=== PATIENT | female | born 1980 | race Caucasian/White ===

== ENCOUNTER 2020-07-19 18:16 | Outpatient (CLI) | payer BC, OTHER | END 2020-07-19 20:35 | disposition home or self-care (01) | LOC: GENOP 18:16 | DX: O36.8130 Decreased fetal movements, third trimester, not applicable or unspecified (principal); O99.353 Diseases of the nervous system complicating pregnancy, third trimester; G40.209 Localization-related (focal) (partial) symptomatic epilepsy and epileptic syndromes with complex partial seizures, not intractable, without status epilepticus; G51.0 Bell's palsy; O99.323 Drug use complicating pregnancy, third trimester; F11.20 Opioid dependence, uncomplicated; O99.333 Smoking (tobacco) complicating pregnancy, third trimester; F17.200 Nicotine dependence, unspecified, uncomplicated; Z79.899 Other long term (current) drug therapy; Z3A.36 36 weeks gestation of pregnancy | CPT/HCPCS: 81001; G0463 ==

== ENCOUNTER 2020-07-29 19:30 | Outpatient (CLI) | payer BC, OTHER ==
[2020-07-29 20:48] LABS: HEMOGLOBIN 12.5 gm/dl (12.3-15.3); RED BLOOD COUNT 3.96 M/UL (4.00-5.10); WHITE BLOOD COUNT 13.3 K/UL (4.5-11.0)
[2020-07-29 21:28] LABS: BUN/CREATININE RATIO 13 (0-10)
== END 2020-07-29 22:28 | disposition home or self-care (01) ==
LOC: GENOP 19:30
PROVIDERS: Obstetrics & Gynecology
DX: O16.3 Unspecified maternal hypertension, third trimester (principal); O99.353 Diseases of the nervous system complicating pregnancy, third trimester; G40.209 Localization-related (focal) (partial) symptomatic epilepsy and epileptic syndromes with complex partial seizures, not intractable, without status epilepticus; G51.0 Bell's palsy; O99.323 Drug use complicating pregnancy, third trimester; F11.10 Opioid abuse, uncomplicated; Z79.899 Other long term (current) drug therapy; Z3A.37 37 weeks gestation of pregnancy
CPT/HCPCS: 80053; 81001; 82570; 84156; 84550; 85025; G0463

== ENCOUNTER 2020-08-03 20:16 | Outpatient (CLI) | payer BC, OTHER ==
[2020-08-04] MEDS ORDERED: PRENATAL VITAM1 EAC6 PO (11:17)
[2020-08-04] MEDS ORDERED: KEPPRA500 MG PO (11:18)
[2020-08-04] MEDS ORDERED: FOLIC ACID 1 MG1 MG PO (11:18)
[2020-08-04] MEDS ORDERED: SUBOXONE 12 MG1 EACH SL (11:19)
[2020-08-04] MEDS ORDERED: ATARAX SYRUP2 MG/ML PO (11:20)
[2020-08-04] MEDS ORDERED: VISTARIL25 MG PO (11:21)
== END 2020-08-04 00:08 | disposition home or self-care (01) ==
LOC: GENOP 20:16
DX: O46.93 Antepartum hemorrhage, unspecified, third trimester (principal); O99.891 Other specified diseases and conditions complicating pregnancy; R10.30 Lower abdominal pain, unspecified; M54.9 Dorsalgia, unspecified; O99.323 Drug use complicating pregnancy, third trimester; F11.10 Opioid abuse, uncomplicated; O99.353 Diseases of the nervous system complicating pregnancy, third trimester; G40.209 Localization-related (focal) (partial) symptomatic epilepsy and epileptic syndromes with complex partial seizures, not intractable, without status epilepticus; G51.0 Bell's palsy; O99.333 Smoking (tobacco) complicating pregnancy, third trimester; F17.210 Nicotine dependence, cigarettes, uncomplicated; Z3A.38 38 weeks gestation of pregnancy; Z79.899 Other long term (current) drug therapy
CPT/HCPCS: G0463; J7120

== ENCOUNTER 2020-08-04 04:19 | Inpatient (IN) | payer BC, OTHER ==
[~2020-08-04] VITALS: Ht 162.6 cm; Wt 84.4 kg
[2020-08-04 08:32] LABS: HEMOGLOBIN 12.9 gm/dl (12.3-15.3); RED BLOOD COUNT 4.08 M/UL (4.00-5.10); WHITE BLOOD COUNT 14.3 K/UL (4.5-11.0)
[2020-08-04] MEDS ORDERED: PRENATAL VITAM1 EAC6 PO (11:17)
[2020-08-04] MEDS ORDERED: FOLIC ACID 1 MG1 MG PO (11:18)
[2020-08-04] MEDS ORDERED: KEPPRA500 MG PO (11:18)
[2020-08-04] MEDS ORDERED: SUBOXONE 12 MG1 EACH SL (11:19)
[2020-08-04] MEDS ORDERED: ATARAX SYRUP2 MG/ML PO (11:20)
[2020-08-04] MEDS ORDERED: VISTARIL25 MG PO (11:21)
[2020-08-05 06:04] LABS: HEMOGLOBIN 11.1 gm/dl (12.3-15.3)
[2020-08-06] MEDS ORDERED: LABETALOL HCL200 MG PO (05:00)
[2020-08-06] MEDS ORDERED: DOCUSATE SODIU250 MG PO (05:00)
[2020-08-06] MEDS ORDERED: IBUPROFEN600 MG PO (05:00)
== END 2020-08-06 06:07 | disposition home or self-care (01) | DRG 806 ==
LOC: GENOP 04:19 → OB 08:08
PROVIDERS: Obstetrics & Gynecology; ADMIT Obstetrics & Gynecology
PROC: 10907ZC Drainage of Amniotic Fluid, Therapeutic from Products of Conception, Via Natural or Artificial Opening (ICD-10-PCS; principal; 2020-08-04)
PROC: 10E0XZZ Delivery of Products of Conception, External Approach (ICD-10-PCS; 2020-08-04)
PROC: 0KQM0ZZ Repair Perineum Muscle, Open Approach (ICD-10-PCS; 2020-08-04)
PROC: 3E033VJ Introduction of Other Hormone into Peripheral Vein, Percutaneous Approach (ICD-10-PCS; 2020-08-04)
PROC: 3E0234Z Introduction of Serum, Toxoid and Vaccine into Muscle, Percutaneous Approach (ICD-10-PCS; 2020-08-06)
DX: O99.324 Drug use complicating childbirth (principal); F11.20 Opioid dependence, uncomplicated; Z37.0 Single live birth; O99.354 Diseases of the nervous system complicating childbirth; Z3A.38 38 weeks gestation of pregnancy; O70.1 Second degree perineal laceration during delivery; Z23 Encounter for immunization; Z20.822 Contact with and (suspected) exposure to COVID-19; O99.824 Streptococcus B carrier state complicating childbirth; G40.909 Epilepsy, unspecified, not intractable, without status epilepticus; O99.344 Other mental disorders complicating childbirth; F41.9 Anxiety disorder, unspecified; O99.331 Smoking (tobacco) complicating pregnancy, first trimester
CPT/HCPCS: 36415; 80307; 81001; 82800; 85014; 85018; 85025; 90715; G0463; J2590; J2795; J3010; J7120; U0002